=== PATIENT | female | born 1970 | race Native Hawaiian/Other Pacific Islander ===

== ENCOUNTER 2019-06-24 01:54 | Emergency (ER) | payer MEDICARE ==
[2019-06-24 06:34] LABS: Bilirubin,Urine NEG (Negative); Blood,Urine NEG (Negative); Color,Urine Yellow (Yellow); Mucus,Urine FEW /HPF; Protein,Urine <15 mg/dL mg/dL (Negative); Urobilinogen,Urine < 2.0 mg/dL (<2.0)
--- NOTE | 2019-06-24 09:56 | Emergency Department Report ---
ED Abdominal Pain HPI - General Chief Complaint: Abdominal Pain Stated Complaint: POSS UTI/HBP Time Seen by Provider: 06/24/19 09:26 Source: patient Mode of arrival: Stretcher Limitations: No Limitations - History of Present Illness Initial Comments: Physical 29-year-old female presents the emergency department with a chief complaint of generalized body aches, lower back pain bilaterally and rating pain to the right side of her lower abdomen. Patient reports this pain has been ongoing for the past many weeks. She states she was admitted the hospital 2 weeks ago for bacteremia and states she feels similar to then. His past medical history of hypertension, bipolar and schizophrenia. She states she has been having fluttering blood pressures and has been seen by her flight manager about this. She denies any associated fevers, chills, night sweats, headache, dizziness, blurry vision, chest pain, shortness of breath, weakness or any other associated symptoms. MD Complaint: abdominal pain - Related Data Previous Rx's Medication Instructions Recorded Last Taken Type Dicyclomine [Bentyl] 10 mg PO QID #20 capsule 06/24/19 Unknown Rx Ondansetron [Zofran Odt] 4 mg PO Q8HR #21 tab.rapdis 06/24/19 Unknown Rx Allergies Allergy/AdvReac Type Severity Reaction Status Date / Time metronidazole [From Flagyl] Allergy Hives Verified 06/24/19 03:01 ED Review of Systems ROS: Stated complaint: POSS UTI/HBP Other details as noted in HPI Comment: All other systems reviewed and negative Constitutional: denies: chills, fever Eyes: denies: eye pain, eye discharge, vision change ENT: denies: ear pain, throat pain Respiratory: denies: cough, shortness of breath, wheezing Cardiovascular: denies: chest pain, palpitations Endocrine: no symptoms reported Gastrointestinal: as per HPI, abdominal pain. denies: nausea, diarrhea Genitourinary: denies: urgency, dysuria, discharge Musculoskeletal: as per HPI, back pain, myalgia. denies: joint swelling, a rthralgia Skin: denies: rash, lesions Neurological: denies: headache, weakness, paresthesias Psychiatric: denies: anxiety, depression Hematological/Lymphatic: denies: easy bleeding, easy bruising ED Past Medical Hx - Past Medical History Previous Medical History?: Yes Hx Hypertension: Yes Hx Psychiatric Treatment: Yes (Bipolar, Schizophrenia) Additional medical history: Staph Infection - Surgical History Past Surgical History?: Yes Additional Surgical History: Hysterectomy, Adhesions - Social History Smoking Status: Current Every Day Smoker Substance Use Type: None - Medications Home Medications: Home Medications Medication Instructions Recorded Confirmed Last Taken Type Dicyclomine [Bentyl] 10 mg PO QID #20 capsule 06/24/19 Unknown Rx Ondansetron [Zofran Odt] 4 mg PO Q8HR #21 tab.rapdis 06/24/19 Unknown Rx ED Physical Exam - General Limitations: No Limitations General appearance: alert, in no apparent distress - Head Head exam: Present: atraumatic, normocephalic - Eye Eye exam: Present: normal appearance, PERRL, EOMI - ENT ENT exam: Present: normal exam, normal orophraynx, mucous membranes moist - Neck Neck exam: Present: normal inspection. Absent: tenderness, meningismus - Respiratory Respiratory exam: Present: normal lung sounds bilaterally. Absent: respiratory distress, wheezes, rales, rhonchi, stridor, accessory muscle use - Cardiovascular Cardiovascular Exam: Present: regular rate, normal rhythm, normal heart sounds. Absent: systolic murmur, diastolic murmur, rubs, gallop - GI/Abdominal GI/Abdominal exam: Present: soft, normal bowel sounds. Absent: distended, tenderness, guarding, rebound, rigid - Extremities Exam Extremities exam: Present: normal inspection, full ROM. Absent: tenderness - Back Exam Back exam: Present: normal inspection, full ROM, tenderness, other (paraspinal tenderness with no CVA tenderness bilaterally). Absent: CVA tenderness (R), CVA tenderness (L) - Neurological Exam Neurological exam: Present: alert, oriented X3 - Psychiatric Psychiatric exam: Present: normal affect, normal mood - Skin Skin exam: Present: warm, dry, intact, normal color. Absent: rash ED Course Vital Signs 06/24/19 06/24/19 02:28 05:41 Temperature 98.3 F 97.8 F Pulse Rate 71 59 L Respiratory 18 20 Rate Blood Pressure 140/91 147/90 O2 Sat by Pulse 98 100 Oximetry ED Medical Decision Making - Lab Data Result diagrams: 06/24/19 10:05 06/24/19 10:05 Lab Results 12/27/19 12/27/19 12/27/19 Range/Units 10:05 10:05 Unknown WBC 4.6 (4.5-11.0) K/mm3 RBC 3.82 (3.65-5.03) M/mm3 Hgb 11.4 (10.1-14.3) gm/dl Hct 33.7 (30.3-42.9) % MCV 88 (79-97) fl MCH 30 (28-32) pg MCHC 34 (30-34) % RDW 14.5 (13.2-15.2) % Plt Count 226 (140-440) K/mm3 Lymph % (Auto) 30.9 (13.4-35.0) % Barnwell % (Auto) 10.4 H (0.0-7.3) % Eos % (Auto) 2.8 (0.0-4.3) % Baso % (Auto) 1.2 (0.0-1.8) % Lymph # 1.4 (1.2-5.4) K/mm3 Barnwell # 0.5 (0.0-0.8) K/mm3 Eos # 0.1 (0.0-0.4) K/mm3 Baso # 0.1 (0.0-0.1) K/mm3 Seg Neutrophils % 54.7 (40.0-70.0) % Seg Neutrophils # 2.5 (1.8-7.7) K/mm3 Sodium 145 (137-145) mmol/L Potassium 3.3 L (3.6-5.0) mmol/L Chloride 108.3 H (98-107) mmol/L Carbon Dioxide 23 (22-30) mmol/L Anion Gap 17 mmol/L BUN 8 (7-17) mg/dL Creatinine 0.8 (0.7-1.2) mg/dL Estimated GFR > 60 ml/min BUN/Creatinine Ratio 10 % Glucose 87 (65-100) mg/dL Calcium 8.8 (8.4-10.2) mg/dL Total Bilirubin 0.30 (0.1-1.2) mg/dL Direct Bilirubin < 0.2 (0-0.2) mg/dL Indirect Bilirubin 0.1 mg/dL AST 25 (5-40) units/L ALT 19 (7-56) units/L Alkaline Phosphatase 72 (35-129) units/L Total Protein 6.8 (6.3-8.2) g/dL Albumin 3.8 L (3.9-5) g/dL Albumin/Globulin Ratio 1.3 % Lipase 3 L (13-60) units/L Urine Color Yellow (Yellow) Urine Turbidity Clear (Clear) Urine pH 7.0 (5.0-7.0) Ur Specific Mildred 1.011 (1.003-1.030) Urine Protein <15 mg/dl (Negative) mg/dL Urine Glucose (UA) Neg (Negative) mg/dL Urine Ketones Neg (Negative) mg/dL Urine Blood Neg (Negative) Urine Nitrite Neg (Negative) Urine Bilirubin Neg (Negative) Urine Urobilinogen < 2.0 (<2.0) mg/dL Ur Leukocyte Esterase Neg (Negative) Urine WBC (Auto) 2.0 (0.0-6.0) /HPF Urine RBC (Auto) 2.0 (0.0-6.0) /HPF U Epithel Cells (Auto) 2.0 (0-13.0) /HPF Urine Mucus Few /HPF - Radiology Data Radiology results: report reviewed Patient: JESSY LEWIS MR#: [id number] : 1970 Acct:[id number] Age/Sex: 49 / F ADM Date: 06/24/19 Loc: ED Attending Dr: Ordering Physician: UBALDO HERNANDEZ Date of Service: 06/24/19 Procedure(s): CT abdomen pelvis w con Accession Number(s): [id number] cc: UBALDO HERNANDEZ CT ABDOMEN AND PELVIS WITH CONTRAST HISTORY: Right lower quadrant pain, nausea and vomiting. COMPARISON: No comparative imaging available. TECHNIQUE: Routine abdominal and pelvic CT exam performed following intravenous contrast administration. 100 cc of Omnipaque 300 was injected intravenously without incident and consent was obtained prior to administration of the contrast.. All CT scans at this location are performed using CT dose reduction for ALARA by means of automated exposure control. FINDINGS: CT ABDOMEN: Lung Bases: No significant abnormality. Liver: Mildly enlarged with the right lobe measuring 20 cm in length. Mild diffuse decreased liver density. Focal fat at the intersegmental fissure. Biliary: Normal gallbladder and bile ducts. Spleen: No significant abnormality. Unenlarged. Pancreas: No significant abnormality. Adrenals: No significant abnormality. Kidneys: No significant abnormality. Lymphatics: No lymphadenopathy. Vasculature: No significant abnormality. Bowel/Peritoneum: No significant abnormality. No free air. No free fluid. Normal appendix. CT PELVIC: : Status post hysterectomy. No right ovary identified. A small normal left ovary. Normal urinary bladder. Lymphatics: No lymphadenopathy. Osseous Structures: No aggressive appearing osseous lesions. Additional Findings: Normal rectum and sigmoid colon IMPRESSION: 1. Mild decreased liver density and hepatomegaly. Suspect hepatic steatosis. 2. Status post hysterectomy and right salpingo-oophorectomy. 3. No appendicitis. Signer Name: Fernandez Medina MD Signed: 06/24/2019 1:39 PM Workstation Name: [id number] - Medical Decision Making Patient is nontoxic in no acute distress. Vitals are stable. Labs returned relatively unremarkable. Urine also relatively unremarkable. CT scan of the belly was ordered due to right lower quadrant abdominal pain and this returned negative for appendicitis or other acute abnormality. Patient will be treated with Bentyl for pain, Zofran for nausea and primary care follow-up. She was understanding of the diagnosis, treatment plan follow-up instructions and all her questions were answered. - Differential Diagnosis cholecystitis, appendicitis, diverticulitis Critical care attestation.: If time is entered above; I have spent that time in minutes in the direct care of this critically ill patient, excluding procedure time. ED Disposition Clinical Impression: Nonspecific abdominal pain Disposition: - TO HOME OR SELFCARE Is pt being admited?: No Condition: Stable Instructions: Abdominal Pain (ED) Prescriptions: Dicyclomine [Bentyl] 10 mg PO QID #20 capsule Ondansetron [Zofran Odt] 4 mg PO Q8HR #21 tab.rapdis Referrals: ADITYA DRAPER,RICHARD JHA [Other] - 3-5 Days Time of Disposition: 13:59
[2019-06-24 10:18] LABS: Basophils # (Auto) 0.1 K/mm3 (0.0-0.1); Basophils % (Auto) 1.2 % (0.0-1.8); Eosinophils # (Auto) 0.1 K/mm3 (0.0-0.4); Eosinophils % (Auto) 2.8 % (0.0-4.3); Hematocrit 33.7 % (30.3-42.9); Hemoglobin 11.4 gm/dl (10.1-14.3); Lymphocytes # (Auto) 1.4 K/mm3 (1.2-5.4); Lymphocytes % (Auto) 30.9 % (13.4-35.0); Mean Corpuscular HGB Conc 34 % (30-34); Mean Corpuscular Volume 88 fl (79-97); Monocytes # (Auto) 0.5 K/mm3 (0.0-0.8); Monocytes % (Auto) 10.4 % (0.0-7.3); Platelet Count 226 K/mm3 (140-440); Red Blood Count 3.82 M/mm3 (3.65-5.03); Red Cell Distribution Width 14.5 % (13.2-15.2)
[2019-06-24 10:46] LABS: Alanine Aminotransferase 19 units/L (7-56); Albumin 3.8 g/dL (3.9-5); BUN/Creatinine Ratio 10; Blood Urea Nitrogen 8 mg/dL (7-17); Calcium 8.8 mg/dL (8.4-10.2); Hemolysis Index 4
[2019-06-24 10:49] LABS: Bilirubin,Direct < 0.2 mg/dL (0-0.2)
--- NOTE | 2019-06-24 13:43 | Cat Scan Report ---
CT ABDOMEN AND PELVIS WITH CONTRAST HISTORY: Right lower quadrant pain, nausea and vomiting. COMPARISON: No comparative imaging available. TECHNIQUE: Routine abdominal and pelvic CT exam performed following intravenous contrast administrat ion. 100 cc of Omnipaque 300 was injected intravenously without incident and consent was obtained fred or to administration of the contrast.. All CT scans at this location are performed using CT dose redu ction for LIN by means of automated exposure control. FINDINGS: CT ABDOMEN: Lung Bases: No significant abnormality. Liver: Mildly enlarged with the right lobe measuring 20 cm in length. Mild diffuse decreased liver de nsity. Focal fat at the intersegmental fissure. Biliary: Normal gallbladder and bile ducts. Spleen: No significant abnormality. Unenlarged. Pancreas: No significant abnormality. Adrenals: No significant abnormality. Kidneys: No significant abnormality. Lymphatics: No lymphadenopathy. Vasculature: No significant abnormality. Bowel/Peritoneum: No significant abnormality. No free air. No free fluid. Normal appendix. CT PELVIC: : Status post hysterectomy. No right ovary identified. A small normal left ovary. Normal urinary bl adder. Lymphatics: No lymphadenopathy. Osseous Structures: No aggressive appearing osseous lesions. Additional Findings: Normal rectum and sigmoid colon IMPRESSION: 1. Mild decreased liver density and hepatomegaly. Suspect hepatic steatosis. 2. Status post hysterectomy and right salpingo-oophorectomy. 3. No appendicitis. Signer Name: Fernandez Medina MD Signed: 06/24/2019 1:39 PM Workstation Name: [id number]
[2019-06-24 14:20] VITALS: BP 138/90
== END 2019-06-24 18:43 | disposition home or self-care (01) ==
LOC: ED 01:54
DX: I10 Essential (primary) hypertension (principal); R10.9 Unspecified abdominal pain; F32.89 Other specified depressive episodes; F20.89 Other schizophrenia; F17.200 Nicotine dependence, unspecified, uncomplicated; Z90.710 Acquired absence of both cervix and uterus; Z79.899 Other long term (current) drug therapy; Z88.1 Allergy status to other antibiotic agents
CPT/HCPCS: 36415; 74177; 80048; 80076; 81001; 83690; 85025; 99284; Q9967

== ENCOUNTER 2019-08-05 21:59 | Emergency (ER) | payer MEDICARE ==
[2019-08-05] MEDS ORDERED: ASPIRIN 325 MG TAB PO ONE (22:23)
--- NOTE | 2019-08-05 22:42 | Emergency Department Report ---
ED General Adult HPI - General Chief complaint: Chest Pain Stated complaint: CHEST PAIN Time Seen by Provider: 08/05/19 22:33 Source: patient, EMS Mode of arrival: Stretcher Limitations: No Limitations - History of Present Illness Initial comments: Patient is a 49-year-old female presents to emergency with right-sided chest pain. Patient states that her chest pain was a 10 out of 10 but has improved. Patient states her chest pain now is a 3 out of 10. Patient states that her right chest and her right neck. Patient states that she also had difficulty breathing but that has resolved. Patient states that having panic attacks lately. Patient states she became anxious and nearly had a panic attack this time. Patient states she is currently staying over at [facility]. Patient states that her chest pain is better with rest and worse with anxiety and palpation. Patient states she has a past medical history of hypertension and bipolar and schizophrenia. -: Sudden Location: neck, chest Radiation: non-radiation Severity scale (0 -10): 3 Quality: aching Consistency: constant Improves with: rest Worsens with: movement, other Associated Symptoms: chest pain, shortness of breath. denies: confusion, cough, diaphoresis, fever/chills, headaches, loss of appetite, malaise, nausea/vomiting, rash, seizure, syncope, weakness - Related Data Previous Rx's Medication Instructions Recorded Last Taken Type Dicyclomine [Bentyl] 10 mg PO QID #20 capsule 06/24/19 Unknown Rx Ondansetron [Zofran Odt] 4 mg PO Q8HR #21 tab.rapdis 06/24/19 Unknown Rx Ibuprofen [Motrin 800 MG tab] 800 mg PO Q8HR PRN #20 tablet 08/05/19 Unknown Rx Allergies Allergy/AdvReac Type Severity Reaction Status Date / Time metronidazole [From Flagyl] Allergy Hives Verified 06/24/19 03:01 ED Review of Systems ROS: Stated complaint: CHEST PAIN Other details as noted in HPI Constitutional: denies: chills, fever Eyes: denies: eye pain, eye discharge, vision change ENT: denies: ear pain, throat pain Respiratory: shortness of breath. denies: cough, wheezing Cardiovascular: chest pain, palpitations Endocrine: no symptoms reported Gastrointestinal: denies: abdominal pain, nausea, diarrhea Genitourinary: denies: urgency, dysuria, discharge Musculoskeletal: denies: back pain, joint swelling, arthralgia Skin: denies: rash, lesions Neurological: denies: headache, weakness, paresthesias Psychiatric: anxiety. denies: depression Hematological/Lymphatic: denies: easy bleeding, easy bruising ED Past Medical Hx - Past Medical History Previous Medical History?: Yes Hx Hypertension: Yes Hx Psychiatric Treatment: Yes (Bipolar, Schizophrenia) Additional medical history: Staph Infection - Surgical History Past Surgical History?: Yes Additional Surgical History: Hysterectomy, Adhesions - Family History Family history: no significant - Social History Smoking Status: Never Smoker Substance Use Type: None - Medications Home Medications: Home Medications Medication Instructions Recorded Confirmed Last Taken Type Dicyclomine [Bentyl] 10 mg PO QID #20 capsule 06/24/19 Unknown Rx Ondansetron [Zofran Odt] 4 mg PO Q8HR #21 tab.rapdis 06/24/19 Unknown Rx Ibuprofen [Motrin 800 MG tab] 800 mg PO Q8HR PRN #20 tablet 08/05/19 Unknown Rx ED Physical Exam - General Limitations: No Limitations General appearance: alert, in no apparent distress - Head Head exam: Present: atraumatic, normocephalic - Eye Eye exam: Present: normal appearance, PERRL Pupils: Present: normal accommodation - ENT ENT exam: Present: mucous membranes moist - Neck Neck exam: Present: normal inspection - Respiratory Respiratory exam: Present: normal lung sounds bilaterally, chest wall tenderness. Absent: respiratory distress, wheezes, rales, accessory muscle use, decreased breath sounds, prolonged expiratory - Cardiovascular Cardiovascular Exam: Present: regular rate, normal rhythm. Absent: systolic murmur, diastolic murmur, rubs, gallop - GI/Abdominal GI/Abdominal exam: Present: soft, normal bowel sounds. Absent: distended, tenderness, guarding, rebound - Rectal Rectal exam: Present: deferred - Extremities Exam Extremities exam: Present: normal inspection, full ROM. Absent: tenderness - Back Exam Back exam: Present: normal inspection, full ROM - Neurological Exam Neurological exam: Present: alert, oriented X3 - Psychiatric Psychiatric exam: Present: normal affect, normal mood - Skin Skin exam: Present: warm, dry, intact, normal color. Absent: rash ED Course Vital Signs 08/05/19 08/06/19 08/06/19 22:17 00:22 02:00 Temperature 97.4 F L Pulse Rate 60 55 L 52 L Respiratory 12 12 12 Rate Blood Pressure 162/99 158/99 128/77 [Left] O2 Sat by Pulse 98 98 98 Oximetry - Reevaluation(s) Reevaluation #1: Initial evaluation done. Patient's chest pain is reproducible on palpation. Patient's chest pain clinically consistent with chest wall pain and panic attack/anx. Patient does not require further emergent evaluation. Patient will be given Toradol for her chest pain. Discussed plan of care with patient. Patient agrees with plan of care. I discussed clinical findings with patient. I discussed discharge instructions the patient. Patient voiced understanding of discharge instructions. 08/05/19 22:52 Patient was given Toradol and patient states her pain has improved. Patient is complaining of feeling nervous and anxious. Patient will be given Ativan. Patient will be discharged back to [facility] and transported via EMS. 08/05/19 23:26 ED Medical Decision Making - Medical Decision Making Patient is a 49-year-old female that presents from where her [facility] psychiatric facility for chest pain. Patient's chest pain is consistent with costochondritis and chest wall pain and anxiety. Patient was given Toradol and Ativan and her symptoms completely resolved. Patient did not require further evaluation the ER since the clinical findings were consistent with a noncardiac chest pain. Patient was medically cleared and sent back to her psychiatric facility continue her treatment. Patient transported back via EMS. Patient stable for discharge. Patient discharged back to psych facility. - Differential Diagnosis costochondritis, chest pain, chest wall pain, anxiety Critical care attestation.: If time is entered above; I have spent that time in minutes in the direct care of this critically ill patient, excluding procedure time. ED Disposition Clinical Impression: Chest wall pain, Anxiety, Costochondritis, acute Chest pain Qualifiers: Chest pain type: unspecified Qualified Code(s): R07.9 - Chest pain, unspecified Disposition: [id number] PSY HOSP/PSY UNIT Is pt being admited?: No Does the pt Need Aspirin: No Condition: Stable Instructions: Chest Pain (ED), Costochondritis (ED) Additional Instructions: Patient to follow up with primary care in 2-3 days. Patient to leave the ER and returned to [facility] and home to complete her psychotherapy. Patient to increase water. Patient to rest. Patient to take Tylenol or ibuprofen when necessary for pain. Prescriptions: Ibuprofen [Motrin 800 MG tab] 800 mg PO Q8HR PRN #20 tablet PRN Reason: pain Referrals: PRIMARY CARE,MD [Primary Care Provider] - 2-3 Days Time of Disposition: 23:29
[2019-08-05] MEDS ORDERED: KETOROLAC 60 MG/2 ML INJ IM ONE (22:43)
[2019-08-05] MEDS ORDERED: LORazepam 1 MG TAB PO ONE (23:28)
[2019-08-05] MEDS ORDERED: LORazepam 1 MG TAB ONE (23:31)
[2019-08-06 04:04] VITALS: BP 128/77
== END 2019-08-06 04:05 ==
LOC: ED 21:59
DX: F41.9 Anxiety disorder, unspecified (principal); M94.0 Chondrocostal junction syndrome [Tietze]; I10 Essential (primary) hypertension; F31.9 Bipolar disorder, unspecified; Z90.710 Acquired absence of both cervix and uterus; Z79.1 Long term (current) use of non-steroidal anti-inflammatories (NSAID); Z79.899 Other long term (current) drug therapy; Z88.8 Allergy status to other drugs, medicaments and biological substances
CPT/HCPCS: 96372; 99284; J1885

== ENCOUNTER 2019-08-18 22:50 | Emergency (ER) | payer MEDICARE ==
[2019-08-19] MEDS ORDERED: ASPIRIN 325 MG TAB PO ONE (00:07)
--- NOTE | 2019-08-19 00:31 | XRay Report ---
CHEST 1 VIEW INDICATION / CLINICAL INFORMATION: Chest Pain. COMPARISON: None available. FINDINGS: SUPPORT DEVICES: None. HEART / MEDIASTINUM: No significant abnormality. LUNGS / PLEURA: No significant pulmonary or pleural abnormality.. No pneumothorax. ADDITIONAL FINDINGS: No significant additional findings. IMPRESSION: 1. No acute findings. Signer Name: Tra Cardoza MD Signed: 08/19/2019 12:26 AM Workstation Name: [id number]
[2019-08-19 00:46] LABS: Basophils % (Auto) 0.8 % (0.0-1.8); Eosinophils # (Auto) 0.2 K/mm3 (0.0-0.4); Hematocrit 37.9 % (30.3-42.9); Hemoglobin 12.5 gm/dl (10.1-14.3); Lymphocytes # (Auto) 1.1 K/mm3 (1.2-5.4); Lymphocytes % (Auto) 27.6 % (13.4-35.0); Mean Corpuscular HGB Conc 33 % (30-34); Mean Corpuscular Volume 89 fl (79-97); Monocytes # (Auto) 0.4 K/mm3 (0.0-0.8); Monocytes % (Auto) 10.2 % (0.0-7.3); Platelet Count 169 K/mm3 (140-440); Red Blood Count 4.27 M/mm3 (3.65-5.03); Red Cell Distribution Width 13.6 % (13.2-15.2)
[2019-08-19 01:06] LABS: BUN/Creatinine Ratio 15; Blood Urea Nitrogen 12 mg/dL (7-17); Calcium 9.2 mg/dL (8.4-10.2); Hemolysis Index 10
[2019-08-19 01:46] LABS: Bacteria,Urine 1+ /HPF (Negative); Bilirubin,Urine NEG (Negative); Blood,Urine NEG (Negative); Color,Urine Straw (Yellow); Mucus,Urine FEW /HPF; Protein,Urine <15 mg/dL mg/dL (Negative); Urobilinogen,Urine < 2.0 mg/dL (<2.0)
--- NOTE | 2019-08-19 02:17 | Emergency Department Report ---
ED General Adult HPI - General Chief complaint: Chest Pain Stated complaint: CHEST PAIN Time Seen by Provider: 08/19/19 02:16 Source: patient, EMS Mode of arrival: Ambulatory Limitations: No Limitations - History of Present Illness Initial comments: 49-year-old female who presents to the ED with chest pain and abdominal pain, right lower quadrant, onset 1 day prior to evaluation while at rest, Location: mid chest Radiation: none, Severity now (0-10): 2, Severity at worst (0-10): 8 Duration: 5 minutes characterized as: sharp. Both her chest and the right lower quadrant pain. Patient denies exertional pain, patient denies pleuritic pain. Patient denies associated symptoms, such as nausea/vomiting, no diaphoresis, no shortness of breath. - Related Data Previous Rx's Medication Instructions Recorded Last Taken Type Dicyclomine [Bentyl] 10 mg PO QID #20 capsule 06/24/19 Unknown Rx Ondansetron [Zofran Odt] 4 mg PO Q8HR #21 tab.rapdis 06/24/19 Unknown Rx Ciprofloxacin HCl [Ciprofloxacin 500 mg PO Q12HR 7 Days #14 tab 08/19/19 Unknown Rx TAB] Ibuprofen [Motrin 800 MG tab] 800 mg PO Q8HR PRN #20 tablet 08/19/19 Unknown Rx Allergies Allergy/AdvReac Type Severity Reaction Status Date / Time metronidazole [From Flagyl] Allergy Hives Verified 06/24/19 03:01 ED Review of Systems ROS: Stated complaint: CHEST PAIN Other details as noted in HPI Comment: All other systems reviewed and negative Cardiovascular: chest pain. denies: palpitations Gastrointestinal: abdominal pain, nausea ED Past Medical Hx - Past Medical History Previous Medical History?: Yes Hx Hypertension: Yes Hx Psychiatric Treatment: Yes (Bipolar, Schizophrenia) Additional medical history: Staph Infection - Surgical History Past Surgical History?: Yes Additional Surgical History: Hysterectomy, Adhesions - Social History Smoking Status: Never Smoker Substance Use Type: None - Medications Home Medications: Home Medications Medication Instructions Recorded Confirmed Last Taken Type Dicyclomine [Bentyl] 10 mg PO QID #20 capsule 06/24/19 Unknown Rx Ondansetron [Zofran Odt] 4 mg PO Q8HR #21 tab.rapdis 06/24/19 Unknown Rx Ciprofloxacin HCl [Ciprofloxacin 500 mg PO Q12HR 7 Days #14 tab 08/19/19 Unknown Rx TAB] Ibuprofen [Motrin 800 MG tab] 800 mg PO Q8HR PRN #20 tablet 08/19/19 Unknown Rx ED Physical Exam - General Limitations: No Limitations General appearance: alert, in no apparent distress - Head Head exam: Present: atraumatic, normocephalic - Eye Eye exam: Present: normal appearance - ENT ENT exam: Present: normal exam - Neck Neck exam: Present: normal inspection - Respiratory Respiratory exam: Present: normal lung sounds bilaterally - Cardiovascular Cardiovascular Exam: Present: regular rate, normal rhythm - GI/Abdominal GI/Abdominal exam: Present: soft, tenderness (Right lower quadrant) ED Course Vital Signs 08/18/19 08/19/19 08/19/19 23:10 01:18 01:19 Temperature 98.5 F 98.3 F Pulse Rate 64 58 L Respiratory 20 16 16 Rate Blood Pressure 126/88 Blood Pressure 144/85 [Left] O2 Sat by Pulse 97 99 99 Oximetry 08/19/19 08/19/19 02:31 04:14 Temperature Pulse Rate 59 L 70 Respiratory 17 16 Rate Blood Pressure Blood Pressure 119/77 140/92 [Left] O2 Sat by Pulse 97 99 Oximetry ED Medical Decision Making - Lab Data Result diagrams: 08/19/19 00:17 08/19/19 00:17 - Medical Decision Making Urine was suggestive of cystitis. Patient did have a CT abdomen and pelvis done in ED with IV contrast for right lower quadrant pain which did not show any acute abnormalities. Patient will be discharged back home, advised to return to ED if symptoms worsen. She was given ciprofloxacin prescription for her cystitis. Critical care attestation.: If time is entered above; I have spent that time in minutes in the direct care of this critically ill patient, excluding procedure time. ED Disposition Clinical Impression: UTI (urinary tract infection) Qualifiers: Urinary tract infection type: acute cystitis Hematuria presence: without hematuria Qualified Code(s): N30.00 - Acute cystitis without hematuria Disposition: TO HOME OR SELFCARE Is pt being admited?: No Does the pt Need Aspirin: No Condition: Stable Instructions: Urinary Tract Infection in Women (ED) Prescriptions: Ciprofloxacin HCl [Ciprofloxacin TAB] 500 mg PO Q12HR 7 Days #14 tab Ibuprofen [Motrin 800 MG tab] 800 mg PO Q8HR PRN #20 tablet PRN Reason: pain Referrals: PRIMARY CARE, [Primary Care Provider] - 3-5 Days
--- NOTE | 2019-08-19 03:33 | Cat Scan Report ---
CT abdomen pelvis w con INDICATION: right lower quadrant pain. TECHNIQUE: All CT scans at this location are performed using the following dose modulation technique: Automated exposure control. Helical slices were obtained through the abdomen and pelvis. 100 cc of Omnipaque 30 0 is administered. COMPARISON: CT scan dated 06/24/2019 FINDINGS: Abdomen: No acute abnormality is seen in the lower chest. There is mild fatty infiltration of the pankaj er. Spleen, pancreas, adrenal glands, and kidneys show no acute abnormality. There is no obstruction, inflammation, or free air in the abdomen. Pelvis: The appendix is unremarkable. There is no obstruction or free air. There are no abnormal flui d collections. On review of bone windows, no acute osseous abnormalities are seen. IMPRESSION: 1. There is no obstruction, inflammation, or free air. There are no abnormal fluid collections. There is mild fatty infiltration of the liver. Signer Name: Tra Cardoza MD Signed: 08/19/2019 3:29 AM Workstation Name: [id number]
[2019-08-19] MEDS ORDERED: KETOROLAC 30 MG/1 ML INJ IV ONE (03:46)
[2019-08-19 04:14] VITALS: BP 140/92
== END 2019-08-19 06:07 | disposition home or self-care (01) ==
LOC: ED 22:50
DX: N39.0 Urinary tract infection, site not specified (principal); R07.89 Other chest pain; I10 Essential (primary) hypertension; F20.89 Other schizophrenia; F31.9 Bipolar disorder, unspecified; Z90.710 Acquired absence of both cervix and uterus; Z79.899 Other long term (current) drug therapy; Z88.1 Allergy status to other antibiotic agents
CPT/HCPCS: 36415; 71045; 74177; 80048; 81001; 84484; 85025; 93005; 93010; 96374; 99285; J1885; Q9967